=== PATIENT | male | born 1955 | race Caucasian/White ===

== ENCOUNTER 2022-07-23 20:17 | Emergency (ER) | payer MEDICAID ==
[~2022-07-23] VITALS: Ht 180.3 cm; Wt 63.0 kg
[2022-07-23] MEDS ORDERED: KETOROLAC TROMETHAMINE 60 MG/2 ML VIAL IM ONE (22:15)
[2022-07-23] MEDS ORDERED: METHOCARBAMOL 500 MG TABLET PO ONE (22:15)
[2022-07-24 01:58] VITALS: BP 132/70
== END 2022-07-24 04:21 | disposition home or self-care (01) ==
LOC: EMS 20:19
DX: S46.912A Strain of unspecified muscle, fascia and tendon at shoulder and upper arm level, left arm, initial encounter (principal); M79.605 Pain in left leg; F17.210 Nicotine dependence, cigarettes, uncomplicated; Z98.890 Other specified postprocedural states; X58.XXXA Exposure to other specified factors, initial encounter; Y93.89 Activity, other specified; Y92.89 Other specified places as the place of occurrence of the external cause; Y99.8 Other external cause status
CPT/HCPCS: 99283; 82962; J1885; 96372